=== PATIENT | male | born 1960 | race Two or more races ===

== ENCOUNTER → 2024-10-29 | Outpatient (CLI) | payer OTHER, SELFPAY ==
--- NOTE | 2024-10-29 13:30 | XR_ITS ---
Examination: CT abdomen with intravenous contrast CT pelvis with intravenous contrast 2-D coronal reconstructions 2-D sagittal reconstructions Date and time of exam:October 29, 2024 1333 hours INDICATIONS: Upper abdominal pain beginning several weeks ago. CTDI: vol (mGy) 22.2 DLP: (mGycm) 876 Technique: Multiple axial sections of the abdomen and pelvis have been obtained. 64 slice high-resolution scanner used. 3 mm axial sections have been obtained, post intravenous injection 60 cc [id number] 2-D sagittal, coronal reconstructions obtained. Low dose protocols were performed. One or more of the following dose reduction techniques were used; automated exposure control, adjustment of the mA and/or KV according to patient size, use of iterative reconstruction technique. Findings: Liver is mildly irregular in contour Splenomegaly 16 cm Gallbladder wall appears mildly thickened Small retrocardiac gastric hernia No pancreatic or adrenal mass No renal or ureteral calculi Trace ascites Normal appendix No bowel obstruction No diverticulitis Transverse prostate dimension 4.5 cm Contracted urinary bladder Diffuse advanced lumbar degenerative disc disease with grade 1 spondylolisthesis L5 on S1 IMPRESSION: Primary hepatocellular disease versus cirrhosis Splenomegaly Recommend hepatobiliary sonography to exclude gallbladder wall thickening Trace ascites No bowel obstruction
== END | disposition home or self-care (01) ==
PROVIDERS: Referring Provider Family Medicine; Visit Provider Family Medicine
DX: R16.1 Splenomegaly, not elsewhere classified (principal); R18.8 Other ascites
CPT/HCPCS: 74177; A4649; Q9967